=== PATIENT | female | born 1990 | race African-American/Black ===

== ENCOUNTER 2018-06-06 07:43 | Inpatient (IN) | payer MEDICAID ==
[~2018-06-06] VITALS: Ht 162.6 cm; Wt 123.8 kg
[~2018-06-06 07:43] MED LIST: LURA40 PO; SERT50TA12 PO
[2018-06-06 08:42] VITALS: BP 100/79
[2018-06-06] MEDS ORDERED: HALOPERIDOL 5 MG TABLET PO PRN (08:45)
[2018-06-06] MEDS ORDERED: PALI39DI IM (09:33)
[2018-06-06 13:17] VITALS: BP 105/62
[2018-06-06 16:00] VITALS: BP 121/68
[2018-06-06] MEDS: PALIPERIDONE 6 MG ER TABLET PO SCH (20:22)
[2018-06-07 08:07] VITALS: BP 135/82
[2018-06-07 08:47] LABS: EOSINOPHILS % (AUTO) 3.1 % (1.0-6.0); HEMATOCRIT 33.8 % (36-46); HEMOGLOBIN 10.6 g/dL (12.0-16.0); LYMPHOCYTES # (AUTO) 2.1 K/uL (1.0-4.8); LYMPHOCYTES % (AUTO) 27.2 % (22.0-44.0); MEAN CORPUSCULAR HGB CONC 31.3 G/dL (31.0-37.0); MEAN CORPUSCULAR VOLUME 80 fL (80-100); MONOCYTES # (AUTO) 0.9 K/uL (0.1-1.0); MONOCYTES % (AUTO) 11.2 % (2.0-9.0); NEUTROPHILS # (AUTO) 4.5 K/uL (1.8-7.7); NEUTROPHILS % (AUTO) 57.5 % (40.0-70.0); PLATELET COUNT (AUTO) 439 K/uL (150-450); RED BLOOD CELL COUNT(AUTO) 4.23 MIL/uL (4.00-5.20); RED CELL DISTRIBUTION WIDTH 16.3 % (11.5-14.5)
[2018-06-07 08:56] LABS: HEMOGLOBIN A1C 5.4 % (4.5-6.2)
[2018-06-07 09:25] LABS: ALANINE AMINOTRANSFERASE 24 U/L (12-78); ALBUMIN 3.3 g/dL (3.4-5.0); ALKALINE PHOSPHATASE 79 U/L (46-116); ANION GAP 8 mmol/L (8-16); ASPARTATE AMINOTRANSFERASE 14 U/L (15-37); BILIRUBIN,TOTAL 0.2 mg/dL (0.1-1.0); CARBON DIOXIDE 27 mmol/L (22-29); CHLORIDE 106 mmol/L (98-107); CHOL/HDL RATIO 3.3 (3.9-5.7); CHOLESTEROL 146 mg/dL (131-200); CREATININE 0.86 mg/dL (0.60-1.30); FREE T4 (FREE THYROXINE) 0.76 ng/dL (0.76-1.46); GLOMERULAR FILTR. RATE CALC > 60 mL/min (>60); GLUCOSE,RANDOM 81 mg/dL (70-110); HCG,QUANTITATIVE < 1 mIU/mL (0-6); HDL CHOLESTEROL 44 mg/dL (40-60); LDL CHOL (CALC.) 88 mg/dL (0-130); POTASSIUM 3.8 mmol/L (3.5-5.1); SODIUM SERUM 141 mmol/L (136-145); THYROID STIMULATING HORMONE 1.91 uIU/mL (0.36-3.74); TOTAL PROTEIN, SERUM 8.1 g/dL (6.4-8.2); TRIGLYCERIDES 72 mg/dL (15-150); UREA NITROGEN, BLOOD 9 mg/dL (7-18)
[2018-06-07 16:40] VITALS: BP 107/70
[2018-06-07] MEDS ORDERED: MAGNESIUM HYDROXIDE SUSPENSION 30 ML UDCUP PO PRN (18:00)
[2018-06-07] MEDS ORDERED: BENZOCAINE/MENTHOL LOZENGE MM PRN (18:00)
[2018-06-07] MEDS ORDERED: ALBUTEROL SULFATE HFA 90 MCG/PUFF 8 GM INHALER IH PRN (18:00)
[2018-06-07] MEDS ORDERED: LOPERAMIDE HCL 2 MG CAPSULE PO PRN (18:00)
[2018-06-07] MEDS ORDERED: MAG HYDROX/AL HYDROX/SIMETH ES 30 ML SUSPENSION UDCUP PO PRN (18:00)
[2018-06-07] MEDS ORDERED: CloNIDine HCL 0.1 MG TABLET PO PRN (18:00)
[2018-06-07] MEDS ORDERED: PETROLATUM,WHITE 71 GM JELLY TP PRN (18:00)
[2018-06-07] MEDS ORDERED: ONDANSETRON HCL 4 MG TABLET PO PRN (18:00)
[2018-06-07] MEDS ORDERED: ACETAMINOPHEN 325 MG TABLET PO PRN (18:00)
[2018-06-07] MEDS ORDERED: IBUPROFEN 600 MG TABLET PO PRN (18:00)
[2018-06-07] MEDS ORDERED: BACITRACIN 28.4 GM OINTMENT TP PRN (18:00)
[2018-06-07] MEDS: PALIPERIDONE 6 MG ER TABLET PO SCH (20:44)
[2018-06-08 00:46] VITALS: BP 115/68
[2018-06-08] MEDS: FERROUS SULFATE 325 MG EC TABLET PO SCH ×2 (07:02→16:59)
[2018-06-08 08:16] VITALS: BP 98/59
[2018-06-08] MEDS: NICOTINE 14 MG/24 HOUR PATCH TD SCH (08:51)
[2018-06-08 16:05] VITALS: BP 127/66
[2018-06-08] MEDS: PALIPERIDONE 6 MG ER TABLET PO SCH (21:13)
[2018-06-08] MEDS: ZOLPIDEM TARTRATE 10 MG TABLET PO PRN (23:03)
[2018-06-09 00:39] VITALS: BP 129/74
[2018-06-09] MEDS: FERROUS SULFATE 325 MG EC TABLET PO SCH ×2 (07:01→16:38)
[2018-06-09 08:05] VITALS: BP 126/67
[2018-06-09] MEDS: NICOTINE 14 MG/24 HOUR PATCH TD SCH (08:43)
[2018-06-09] MEDS: LORazepam 2 MG TABLET PO PRN (08:43)
[2018-06-09 16:06] VITALS: BP 114/71
[2018-06-09] MEDS: PALIPERIDONE 6 MG ER TABLET PO SCH (20:38)
[2018-06-09] MEDS: ZOLPIDEM TARTRATE 10 MG TABLET PO PRN (21:42)
[2018-06-10 06:24] VITALS: BP 108/71
[2018-06-10] MEDS: FERROUS SULFATE 325 MG EC TABLET PO SCH ×2 (06:46→16:35)
[2018-06-10 08:10] VITALS: BP 136/71
[2018-06-10] MEDS: NICOTINE 14 MG/24 HOUR PATCH TD SCH (08:30)
[2018-06-10 17:20] VITALS: BP 120/76
[2018-06-10] MEDS: PALIPERIDONE 6 MG ER TABLET PO SCH (20:32)
[2018-06-10] MEDS: ZOLPIDEM TARTRATE 10 MG TABLET PO PRN (20:32)
[2018-06-11 00:20] VITALS: BP 121/68
[2018-06-11] MEDS: FERROUS SULFATE 325 MG EC TABLET PO SCH ×2 (06:34→16:40)
[2018-06-11 08:24] VITALS: BP 116/48
[2018-06-11] MEDS: NICOTINE 14 MG/24 HOUR PATCH TD SCH (08:26)
[2018-06-11 16:07] VITALS: BP 134/74
[2018-06-11] MEDS: LORazepam 2 MG TABLET PO PRN (16:40)
[2018-06-11] MEDS: PALIPERIDONE 6 MG ER TABLET PO SCH (20:25)
[2018-06-11] MEDS: ZOLPIDEM TARTRATE 10 MG TABLET PO PRN (20:25)
[2018-06-12 00:58] VITALS: BP 107/61
[2018-06-12] MEDS: FERROUS SULFATE 325 MG EC TABLET PO SCH (06:33)
[2018-06-12] MEDS: NICOTINE 14 MG/24 HOUR PATCH TD SCH (08:21)
[2018-06-12 08:50] VITALS: BP 107/62
[2018-06-12] MEDS ORDERED: FERR-89 PO (10:05)
[2018-06-12] MEDS ORDERED: PALI6 PO (10:05)
== END 2018-06-12 13:20 | disposition home or self-care (01) | DRG 750 ==
LOC: B3A 08:44
PROVIDERS: ADMIT Psychiatry & Neurology Psychiatry; ATTEND Psychiatry & Neurology Psychiatry
DX: F20.9 Schizophrenia, unspecified (principal); D64.9 Anemia, unspecified; F17.200 Nicotine dependence, unspecified, uncomplicated; K59.00 Constipation, unspecified; G47.00 Insomnia, unspecified; Z71.6 Tobacco abuse counseling
CPT/HCPCS: 83036; 84439; 84443; 90471